=== PATIENT | male | born 1995 | race Caucasian/White ===

== ENCOUNTER 2017-07-14 08:22 | Emergency (ER) | payer OTHER ==
[~2017-07-14] VITALS: Ht 182.9 cm; Wt 109.0 kg
[2017-07-14 08:34] VITALS: BP 157/80; PULSE 78; RESP 16; TEMP 99.4; O2SAT 97
[2017-07-14] MEDS ORDERED: CYCL10TA PO (10:56)
[2017-07-14] MEDS ORDERED: IBUP-232 PO ×2 (10:56→11:01)
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
== END 2017-07-14 11:28 | disposition home or self-care (01) ==
LOC: NEPK 08:22
DX: M79.1 Myalgia (principal); V49.49XA Driver injured in collision with other motor vehicles in traffic accident, initial encounter; Y92.410 Unspecified street and highway as the place of occurrence of the external cause
CPT/HCPCS: 99283